=== PATIENT | male | born 1990 | race Caucasian/White ===

== ENCOUNTER 2023-01-23 07:18 | Emergency (ER) | payer OTHER, SELFPAY ==
--- NOTE | ~2023-01-23 | XR_ITS ---
EXAMINATION: XR HAND, RIGHT CLINICAL INFORMATION: Laceration over fifth metacarpal COMPARISON: None available. TECHNIQUE: PA, lateral, and oblique views of the right hand. FINDINGS: There is no visible acute fracture or dislocation.. Joint space alignment is anatomic. There is a soft tissue laceration fifth MCP joint without underlying bony abnormality or radiopaque foreign body. XR/XR hand RT min 3V IMPRESSION: Soft tissue laceration fifth MCP joint. No underlying bony abnormality or radiopaque foreign body seen.
[2023-01-23 07:22] VITALS: BP 162/83; PULSE 118; RESP 16; TEMP 36.6; O2SAT 99; BMI 22.2
--- NOTE | 2023-01-23 07:30 | PC.NURSE ---
PAtient ao x 4 neuros intact +CSM noted patient was washing dishes cut right knuckle on last digit. bleeding controlled patient unsure of last tetanus shot will CTM
--- NOTE | 2023-01-23 08:00 | ED_ITS ---
HPI - Wound/Laceration General Chief Complaint: Wound/Laceration Stated Complaint: cut on right hand Time Seen by Provider: 01/23/23 07:41 Source: patient and RN notes reviewed Mode of arrival: ambulatory Limitations: no limitations History of Present Illness HPI narrative: This is a 32-year-old male with no significant past medical history who presents to the emergency department today with complaints of right hand laceration which occurred today, minutes prior to his arrival. Patient reports that he is washing his dishes at home when he accidentally lacerated his right hand. He is unsure if his tetanus is UTD. He is able to make a fist with his right hand without any difficulty. No other complaints or concerns at this time. Onset (ago): minute(s) Location: other (left hand ) Place: home Patient tetanus UTD: No Context: accidental Associated symptoms: none Treatments prior to arrival: bandage Related Data Previous Rx's Medication Instructions Recorded amoxicillin 875 mg-potassium 1 tab PO BID #14 tabs 01/23/23 clavulanate 125 mg tablet Allergies Allergy/AdvReac Type Severity Reaction Status Date / Time No Known Allergies Allergy Verified 01/23/23 07:21 Review of Systems Review of Systems: Yes all other systems are reviewed and are negative PMFSH Social History Social History Alcohol intake: unknown Smoked in Last 30 Days: No Advance Directives: No Advance Directives Information Provided: Yes Physical Exam Vital Signs: Vital Signs: Last Vital Signs Temp 97.9 F 01/23/23 07:22 Pulse 118 H 01/23/23 07:22 Resp 16 01/23/23 07:22 BP 162/83 H 01/23/23 07:22 Pulse Ox 99 01/23/23 07:22 O2 Del Method 01/23/23 07:22 BMI result Body Mass Index 22.2 Appearance: Alert. Oriented X3. No acute distress. HEENT: normal inspection CVS: Normal heart rate and rhythm. Pulses normal. Respiratory: No respiratory distress. Skin: There is an approximately 5cm, curved, full thickness laceration with skin flap overlying the left fifth MCP, Tendon sheath is exposed, but fully intact. Full range of motion, able to make a fist without difficulty. No active bleeding. No foreign body. Extremities: Normal inspection x 4 Neuro: Oriented X 3. No motor deficit. No sensory deficit. Medications Administered Discontinued Medications Generic Name Dose Route Start Last Admin Trade Name Freq PRN Reason Stop Dose Admin Diphtheria/Tetanus/Acell Pertussis 0.5 ml 01/23/23 07:53 01/23/23 08:08 Diphth,Pertus(Acell),Tet Adult 0.5 Ml Syringe IM 01/23/23 07:54 0.5 ml .ONCE ONE Administration Lidocaine HCl 20 ml 01/23/23 07:53 01/23/23 08:08 Lidocaine Hcl 1 % 20 Ml Vial SUBCUT 01/23/23 07:54 20 ml ONCE ONE Administration Medical Decision Making Medical Decision Making MDM Narrative: 32 yo M for presenting to the emergency department today for evaluation of laceration over his left fifth MCP. Tendon is visualized but is fully intact. Good sensation and circulation. Range of motion of the left fifth finger and left hand fully intact. Good platform attendant strength. Laceration closed using sutures, see procedure note. Patient given TDAP in department. Right hand x-ray ordered. Will give referral to hand surgeon for close follow-up. Differential Diagnosis Differential Diagnoses: The differential diagnosis associated with the presentation includes Left fifth MCP laceration, abrasion, contusion, fracture Prescription Management I considered prescription management with: Antibiotic Procedures Laceration Laceration 1: Site: hand Side (If applicable): right Size (cm): 6 Description: flap Depth: involves tendon (Tendon is intact) Local Anesthetic: lidocaine 1% Amount of anesthesia used (mL): 4 Pre-repair: wound explored, irrigated extensively and deep structures intact Skin layer closed with: nylon Size (cm): 3-0 Number of sutures: 7 Technique: simple, interrupted Discharge Plan Discharge Clinical Impression: Hand laceration Patient Disposition: Home, Self-Care Instructions: Care For Your Stitches (ED), Laceration (ED) Additional Instructions: You have sutures placed in your hand wound today. You also received a TDAP vaccination today. Your x-rays showed no broken bones. Take prescribed antibiotics as directed. Please keep wound clean and dry. Have your sutures removed in 7-10 days. Follow up with the hand specialist in 1 week to ensure good wound healing. If you develop new or worsening symptoms call 911 or come back to the ER for further evaluation. Prescriptions: New amoxicillin-pot clavulanate 875-125 mg tablet 1 tab PO BID Qty: 14 0RF Referrals: [facility] [place] Group] ( R hand laceration w/ repair)
[2023-01-23] MEDS: Lidocaine HCl 1 % 20 ML VIAL SUBCUT (08:08)
[2023-01-23] MEDS: Diphth,Pertus(ACell),Tet Adult 0.5 ML SYRINGE IM (08:08)
--- NOTE | 2023-01-23 08:38 | PC.NURSE ---
Provider at bedside suturing wound
[2023-01-23 09:56] VITALS: BP 128/73; PULSE 69; RESP 18; O2SAT 98
--- NOTE | 2023-01-23 10:07 | PC.NURSE ---
Work note placed in DC in error patient does not need work note
== END 2023-01-23 09:57 | disposition home or self-care (01) ==
PROVIDERS: Emergency Provider Emergency Medicine
DX: S61.411A Laceration without foreign body of right hand, initial encounter (principal); S60.511A Abrasion of right hand, initial encounter; W26.0XXA Contact with knife, initial encounter; Y93.9 Activity, unspecified; Y92.009 Unspecified place in unspecified non-institutional (private) residence as the place of occurrence of the external cause; Y99.9 Unspecified external cause status; Z23 Encounter for immunization
CPT/HCPCS: 12042; 73130; 90471; 90715; 99284

== ENCOUNTER → 2023-02-04 08:48 | Outpatient (BNVA) | payer OTHER, SELFPAY | PROVIDERS: Visit Provider Physician Assistant | DX: Z13.89 Encounter for screening for other disorder (principal) ==